=== PATIENT | male | born 1970 | race Caucasian/White ===

== ENCOUNTER → 2016-09-26 | Outpatient (CLI) | payer OTHER ==
[~2016-09-26] MED LIST: ACETAMINOPHEN500 MG PO; NEURONTIN300 MG PO
--- NOTE | 2016-09-26 13:05 | DIAGNOSTIC IMAGING REPORT ---
PROCEDURE: US ABDOMEN ULTRASOUND-COMPLETE INDICATION: HEPATIC CYST TECHNIQUE: [place] scale and color Doppler sonographic images of the abdomen were obtained without comparison. COMPARISON: None available FINDINGS: The liver is normal in size, but demonstrates a slight increase in echogenicity. There is a hemangioma in the right lobe laterally that measures 7 x 9 mm. There is focal fatty sparing in the gallbladder fossa that measures 2 cm. No cyst was visualized. The gallbladder is normal without stones or sludge. The wall is normal in thickness measuring 1.5 mm No pericholecystic fluid or Lux sign. The extrahepatic common duct is normal measuring 2.1 mm The visualized pancreas is normal without ductal dilatation or peripancreatic fluid collection. The abdominal aorta is normal in its course and caliber. The retrohepatic inferior vena cava is patent. There is appropriate hepatopetal flow in the portal vein. The right kidney measures 10.5 cm in length. There are multiple cysts in the superior pole measuring 4.2 x 4.1 x 3.5 cm. In the inferior pole there is a cyst measuring 2.5 x 2.0 x 1.7 cm. The left kidney measures 11.6 cm in length. In the mid pole medially there is a cyst measuring 3.3 x 2.4 x 2.3 cm. In the inferior pole there is a calcification measuring 5 x 6 mm. Color Doppler imaging demonstrates normal blood flow in each kidney. The spleen is normal in size measuring 10.1 cm in length. There is no perihepatic or perisplenic ascites. IMPRESSION: 1. Fatty liver with a 9 mm hemangioma. No cyst seen on today's study. 2. Multiple renal cysts bilaterally. Left kidney contains a 6 mm calcification in the inferior pole.
--- NOTE | 2016-09-26 15:32 | DIAGNOSTIC IMAGING REPORT ---
PROCEDURE: US ART LOWER EXT WITH FLEX-LEFT INDICATION: Cold lower extremity, history of arterial surgery at the ankle. TECHNIQUE: Color Doppler duplex imaging of the left lower extremity arterial system was performed. Pre and post exercise ABIs were acquired. COMPARISON: None. FINDINGS: ABIs: Pre exercise posterior tibial: 1.2 Pre exercise dorsalis pedis: 1.1 Postexercise posterior tibial: 1.1 Postexercise dorsalis pedis: 1.1 VESSELS/ WAVEFORMS: Triphasic arterial inflow. Minimal to mild scattered calcific atherosclerotic plaque in the iliac and superficial femoral artery. Triphasic flow through the popliteal artery into the proximal calf arteries. There is a prominent collateral vessel arising from the distal posterior tibial artery, possibly an arterial bypass. There is biphasic arterial flow distal to the postoperative area in the proximal foot. There is triphasic flow in the peroneal artery. A collateral branch arises from the mid anterior tibial artery which demonstrates minimal flow. Mid to distal anterior tibial artery is difficult to follow, however the dorsalis pedis artery at the foot reconstitutes and demonstrates triphasic flow. PEAK SYSTOLIC VELOCITIES: External iliac: 126 cm/second. Common femoral artery: 103 cm/second. Profunda femoral artery: 75 cm/second. Proximal superficial femoral artery: 109 cm/second. Mid superficial femoral artery: 82 cm/second. Distal superficial femoral artery: 71 cm/second. Popliteal artery: 73 cm/second. Proximal posterior tibial artery: 66 cm/second. Proximal anterior tibial artery: 70 cm/second. Peroneal artery: 73 cm/second. Distal posterior tibial artery: 33 cm/second. Dorsalis pedis artery: 31 cm/second. IMPRESSION: 1. Diffuse narrowing of the mid to distal anterior tibial artery, but with reconstitution of flow in the dorsalis pedis. 2. Postoperative changes in the distal posterior tibial artery with flow proximal and distal to the operative site. 3. Given resting and post exercise ankle-brachial indices, no evidence of arterial insufficiency in the left lower extremity.
== END ==
LOC: US SRH 10:30
DX: D18.03 Hemangioma of intra-abdominal structures (principal); K76.0 Fatty (change of) liver, not elsewhere classified; N28.1 Cyst of kidney, acquired